=== PATIENT | female | born 1990 | race Caucasian/White ===

== ENCOUNTER 2017-01-30 14:43 | Outpatient (CLI) | payer OTHER ==
[~2017-01-30] VITALS: Ht 162.6 cm; Wt 75.0 kg
[2017-01-30 15:00] VITALS: BP 112/69
== END 2017-01-30 16:49 | disposition home or self-care (01) ==
LOC: LDOP 14:43
PROVIDERS: ATTEND Obstetrics & Gynecology
DX: O26.893 Other specified pregnancy related conditions, third trimester (principal); R10.9 Unspecified abdominal pain; Z3A.00 Weeks of gestation of pregnancy not specified
CPT/HCPCS: 59025; 81003; 99211; G0463

== ENCOUNTER 2017-03-20 21:49 | Outpatient (CLI) | payer OTHER ==
[~2017-03-20] VITALS: Ht 162.6 cm; Wt 77.7 kg
[2017-03-20 22:02] VITALS: BP 116/61
[2017-03-20] MEDS ORDERED: PREN1TAB60 PO (22:32)
[2017-03-20] MEDS ORDERED: IRON15TA3 PO (22:33)
[2017-03-22] MEDS ORDERED: VALA500T PO (18:02)
== END 2017-03-21 00:10 | disposition home or self-care (01) ==
LOC: LDOP 21:49
PROVIDERS: ATTEND Obstetrics & Gynecology
DX: O36.8130 Decreased fetal movements, third trimester, not applicable or unspecified (principal); O62.9 Abnormality of forces of labor, unspecified; Z3A.39 39 weeks gestation of pregnancy
CPT/HCPCS: 59025; 76815; 81003; 87086; 99211; G0463

== ENCOUNTER 2017-03-22 17:07 | Inpatient (IN) | payer OTHER ==
[~2017-03-22] VITALS: Ht 162.6 cm; Wt 77.7 kg
[~2017-03-22 17:07] MED LIST: IRON15TA3 PO; PREN1TAB60 PO
[2017-03-22 17:16] VITALS: BP 119/70
[2017-03-22] MEDS ORDERED: OXYTOCIN 30U/ 0.9% NaCL 500ML 500 ML IV ONE (17:32)
[2017-03-22] MEDS: D5%-LACTATED RINGERS 1,000 ML IV SCH ×2 (17:32→22:56)
[2017-03-22] MEDS ORDERED: NEWBORN KIT ONE (17:36)
[2017-03-22] MEDS ORDERED: LIDOCAINE 1%, 20ML ONE (17:36)
[2017-03-22] MEDS ORDERED: MISOPROSTOL 200 MCG TABLET ONE (17:36)
[2017-03-22] MEDS ORDERED: OXYTOCIN 30U/ 0.9% NaCL 500ML 500 ML ONE (17:36)
[2017-03-22 17:57] LABS: HEMATOCRIT 37.7 % (34.6-47.8); HEMOGLOBIN 12.4 g/dL (11.7-16.4); WHITE BLOOD COUNT 12.6 x10^3/uL (3.4-10)
[2017-03-22] MEDS ORDERED: FENTANYL PF 100 MCG/2ML IV PRN (18:00)
[2017-03-22] MEDS ORDERED: FENTANYL PF 100 MCG/2ML IVPush PRN (18:00)
[2017-03-22] MEDS ORDERED: TERBUTALINE 1 MG/ML, 1ML IVPush PRN (18:00)
[2017-03-22] MEDS ORDERED: ONDANSETRON 2MG/ML, 2ML IVPush PRN (18:00)
[2017-03-22] MEDS ORDERED: SODIUM CITRATE/CITRIC ACID 30 ML UDC PO PRN (18:00)
[2017-03-22] MEDS ORDERED: METOCLOPRAMIDE 5 MG/ML, 2ML IVPush PRN (18:00)
[2017-03-22] MEDS ORDERED: VALA500T PO (18:02)
[2017-03-22] MEDS: LACTATED RINGERS 1,000 ML IV SCH ×3 (18:03→20:13)
[2017-03-22] MEDS ORDERED: FENTANYL PF 100 MCG/2ML ONE (18:09)
[2017-03-22] MEDS ORDERED: FENTANYL/BUPIV./NS/PF 250 ML EPIDCONT ONE (19:07)
[2017-03-22] MEDS ORDERED: EPHEDRINE 50 MG/ML, 1ML ONE (19:08)
[2017-03-22] MEDS ORDERED: LACTATED RINGERS 1,000 ML IVBOLUS PRN (21:30)
[2017-03-22] MEDS ORDERED: EPHEDRINE 50 MG/ML, 1ML IVPush PRN (21:30)
[2017-03-22] MEDS ORDERED: OXYTOCIN 30U/ 0.9% NaCL 500ML 500 ML IV PRN (22:41)
[2017-03-23] MEDS ORDERED: METHYLERGONOVINE 0.2 MG/ML IM PRN (02:30)
[2017-03-23] MEDS ORDERED: OXYcodone/APAP 5/325MG TABLET PO PRN ×2 (02:30)
[2017-03-23] MEDS ORDERED: MISOPROSTOL 200 MCG TABLET PR PRN (02:30)
[2017-03-23] MEDS ORDERED: ACETAMINOPHEN 325 MG TABLET PO PRN ×2 (02:30)
[2017-03-23] MEDS ORDERED: BISACODYL 10 MG SUPP PR PRN (02:30)
[2017-03-23] MEDS ORDERED: ONDANSETRON 2MG/ML, 2ML IV PRN (02:30)
[2017-03-23] MEDS ORDERED: CARBOPROST TROMETHAMINE 250 MCG/ML, 1ML IM PRN (02:30)
[2017-03-23] MEDS ORDERED: GLYCERIN ADULT SUPP PR PRN (02:30)
[2017-03-23] MEDS ORDERED: IBUPROFEN 600 MG TABLET ONE (02:45)
[2017-03-23] MEDS ORDERED: OXYTOCIN 30U/ 0.9% NaCL 500ML 500 ML ONE (02:45)
[2017-03-23] MEDS: OXYTOCIN 30U/ 0.9% NaCL 500ML 500 ML IV SCH ×3 (02:47→22:17)
[2017-03-23] MEDS: IBUPROFEN 600 MG TABLET PO PRN ×3 (03:14→21:04)
[2017-03-23 05:00] VITALS: BP 105/61
[2017-03-23 07:30] VITALS: BP 112/63
[2017-03-23] MEDS: DOCUSATE 100 MG CAPSULE PO PRN ×2 (08:01→21:04)
[2017-03-23] MEDS: PRENATAL VIT/IRON/FA 1 EACH TABLET PO SCH (08:01)
[2017-03-23 12:00] VITALS: BP 115/73
[2017-03-23 12:37] LABS: HEMATOCRIT 34.9 % (34.6-47.8); HEMOGLOBIN 11.4 g/dL (11.7-16.4); WHITE BLOOD COUNT 16.8 x10^3/uL (3.4-10)
[2017-03-23 12:38] LABS: DIFF TOTAL CELLS COUNTED 100 CELL DIFF
[2017-03-23 13:51] LABS: ANISOCYTOSIS 1+; POIKILOCYTOSIS 1+
[2017-03-23 13:52] LABS: VERIFY COUNTS? YES
[2017-03-23 16:16] VITALS: BP 101/62
[2017-03-23 20:05] VITALS: BP 105/65
[2017-03-24 00:25] VITALS: BP 119/59
[2017-03-24] MEDS: PRENATAL VIT/IRON/FA 1 EACH TABLET PO SCH (07:16)
[2017-03-24] MEDS: IBUPROFEN 600 MG TABLET PO PRN (07:16)
[2017-03-24] MEDS: OXYTOCIN 30U/ 0.9% NaCL 500ML 500 ML IV SCH (07:18)
[2017-03-24 07:46] VITALS: BP 118/75
[2017-03-24] MEDS ORDERED: OXYC-302 PO (13:17)
[2017-03-24] MEDS ORDERED: IBUP-1222 PO (13:17)
== END 2017-03-24 14:15 | disposition home or self-care (01) | DRG 774 ==
LOC: LDOP 17:07 → LDIP 17:39 → 2NW 03-23 04:27
PROVIDERS: ADMIT Obstetrics & Gynecology; ATTEND Obstetrics & Gynecology
PROC: 10E0XZZ Delivery of Products of Conception, External Approach (ICD-10-PCS; principal; 2017-03-22)
PROC: 0UQMXZZ Repair Vulva, External Approach (ICD-10-PCS; 2017-03-22)
PROC: 0HQ9XZZ Repair Perineum Skin, External Approach (ICD-10-PCS; 2017-03-22)
PROC: 3E0R3BZ Introduction of Anesthetic Agent into Spinal Canal, Percutaneous Approach (ICD-10-PCS; 2017-03-22)
PROC: 00HU33Z Insertion of Infusion Device into Spinal Canal, Percutaneous Approach (ICD-10-PCS; 2017-03-22)
PROC: 10907ZC Drainage of Amniotic Fluid, Therapeutic from Products of Conception, Via Natural or Artificial Opening (ICD-10-PCS; 2017-03-22)
DX: O98.52 Other viral diseases complicating childbirth (principal); B00.9 Herpesviral infection, unspecified; O70.0 First degree perineal laceration during delivery; O62.2 Other uterine inertia; Z37.0 Single live birth; Z3A.39 39 weeks gestation of pregnancy; O71.82 Other specified trauma to perineum and vulva
CPT/HCPCS: 36415; 85025; 86850; 86900; J3010; J2590; J7120; J7121